=== PATIENT | female | born 1945 | race Caucasian/White ===

== ENCOUNTER → 2016-10-04 | Outpatient (CLI) | payer MEDICARE, MEDICAID ==
[~2016-10-04] MED LIST: ALLO100T PO; AMIT10 PO; AMIT50TA3 PO; ATEN-102 PO; COLC1TAB7 PO; LISI-586 PO; LORTA5 PO; NORC5TAB PO; TIZA4 PO; TIZA4CAP3 PO
[2016-10-04 11:06] LABS: BICARBONATE 30.7 MEQ/L (21.0-32.0); POTASSIUM 3.9 MEQ/L (3.5-5.1); URIC ACID 0.5 MG/DL (2.6-6.0)
== END ==
LOC: CLAB 10:22
PROVIDERS: ATTEND Internal Medicine Rheumatology
DX: M10.49 Other secondary gout, multiple sites (principal); Z79.899 Other long term (current) drug therapy
CPT/HCPCS: 36415; 80048; 84550

== ENCOUNTER → 2017-02-07 | Outpatient (CLI) | payer MEDICARE, MEDICAID ==
[~2017-02-07] MED LIST changes: +DIFL0.0512 RIGHT EYE; +NEPA0.3D RIGHT EYE; +VIGA0.5D RIGHT EYE
[2017-02-07 12:08] LABS: HEMATOCRIT 40.8 % (35.0-46.0); MEAN CELL VOLUME 95.4 FL (80.0-100.0); MEAN CORPUSCULAR HEMOGLOBIN 32.4 PG (27.0-34.0); PLATELET COUNT 295 TH/MM3 (150-450); RED BLOOD COUNT 4.28 MIL/MM3 (4.00-5.30); RED CELL DISTRIBUTION WIDTH 14.8 % (11.6-17.2); REVIEW FLAG FINAL
[2017-02-07 12:39] LABS: ALKALINE PHOSPHATASE 121 U/L (45-117); ALT (GPT) 32 U/L (10-53); TOTAL BILIRUBIN ADULT 0.8 MG/DL (0.2-1.0)
[2017-02-07 12:41] LABS: ANION GAP 8 MEQ/L (5-15); AST (GOT) 42 U/L (15-37); BICARBONATE 27.8 MEQ/L (21.0-32.0); BLOOD UREA NITROGEN 13 MG/DL (7-18); CHLORIDE 101 MEQ/L (98-107); GLOMERULAR FILTRATION RATE 57 ML/MIN (>89); GLUCOSE,FASTING 84 MG/DL (74-99); SODIUM (NA) 137 MEQ/L (136-145); URIC ACID 0.7 MG/DL (2.6-6.0)
[2017-02-07 12:49] LABS: POTASSIUM 4.3 MEQ/L (3.5-5.1)
== END ==
LOC: CLAB 11:34
PROVIDERS: ATTEND Internal Medicine Rheumatology
DX: M06.9 Rheumatoid arthritis, unspecified (principal); M10.49 Other secondary gout, multiple sites; I10 Essential (primary) hypertension; Z79.899 Other long term (current) drug therapy
CPT/HCPCS: 36415; 80053; 84443; 84550; 85027; G0463; 99213

== ENCOUNTER → 2017-03-22 | Outpatient (CLI) | payer MEDICARE, MEDICAID ==
[~2017-03-22] MED LIST changes: -AMIT10 PO; -ATEN-102 PO; -LISI-586 PO; -LORTA5 PO; -TIZA4 PO
[2017-03-22 11:48] LABS: AUTOMATED NEUTROPHIL # 5.7 TH/MM3 (1.8-7.7); BASOPHIL # 0.1 TH/MM3 (0-0.2); BASOPHIL % 0.8 % (0.0-2.0); EOSINOPHIL # 0.2 TH/MM3 (0-0.4); EOSINOPHIL % 2.4 % (0.0-4.0); HEMATOCRIT 37.8 % (35.0-46.0); HEMO FLAGS DIFF FINAL; LYMPHOCYTE # 3.3 TH/MM3 (1.0-4.8); MEAN CELL VOLUME 95.6 FL (80.0-100.0); MEAN CORPUSCULAR HGB CONC 33.5 % (32.0-36.0); MONO % 9.8 % (0.0-8.0); PLATELET COUNT 297 TH/MM3 (150-450); RED BLOOD COUNT 3.95 MIL/MM3 (4.00-5.30); RED CELL DISTRIBUTION WIDTH 14.4 % (11.6-17.2); WHITE BLOOD COUNT 10.3 TH/MM3 (4.0-11.0)
== END ==
LOC: PHPRE 10:56
PROVIDERS: ATTEND Ophthalmology
DX: Z01.812 Encounter for preprocedural laboratory examination (principal); H25.13 Age-related nuclear cataract, bilateral
CPT/HCPCS: 36415; 85025

== ENCOUNTER → 2017-03-23 | Outpatient (CLI) | payer MEDICARE, MEDICAID ==
--- NOTE | 2017-03-24 13:44 | HM ---
Date Performed: 03/24/2017 Time Performed: 08:46:00 HOOKUP DATE: 03/24/17 08:46:00 AM Fri ANALYSIS START TIME: 03/24/2017 8:51:00 AM ANALYSIS END TIME: 03/25/2017 8:51:18 AM PATIENT AGE: 71 PATIENT HEIGHT PATIENT WEIGHT DRUG LIST PATIENT DIAGNOSIS: syncope/hypertension TEST NARRATIVE: The patient's average heart rate was 86 BPM. Heart rates greater than 120 B PM were noted 1% of the time. No episodes of bradycardia were noted. No pauses exceeding 2.0 sec onds were noted. 39 ventricular ectopics, which represented < 1% of the total beat count, were no yulissa. The highest ventricular ectopic frequency occurred from 04:00 PM to 05:00 PM Fri. During this time 8 VE(s) occurred. Ventricular ectopics were observed as 29 isolated beat(s), as 1 couplet(s) an d as 1 run(s). 210 supraventricular ectopics, which represented < 1% of the total beat count, wer e noted. The highest supraventricular ectopic frequency occurred from 09:00 AM to 10:00 AM Fri. Dur ing this time 82 SVE(s) occurred. No episodes of ST depression (defined as -1.0 mm or more) were noted in channel 1. No episodes of ST depression (defined as -1.0 mm or more) were noted in channel 2. No episodes of ST depression (defined as -1.0 mm or more) were noted in channel 3. TEST INTERPRETATION: Holter monitor demonstrates Sinus rhythm with periods of sinus tachycardia up to 121 beats per minute. Rare PAC was noted. One 8 beat run of ventricular tachycardia was noted at 4:46 pm. There were no diary entries. Signed by : Nicola Glover
== END ==
LOC: HCAV 09:04
PROVIDERS: ATTEND Family Medicine
DX: R55 Syncope and collapse (principal); I10 Essential (primary) hypertension
CPT/HCPCS: 93225; 93226

== ENCOUNTER → 2017-04-05 | Day surgery (SDC) | payer MEDICARE, MEDICAID ==
[~2017-04-05] VITALS: Ht 167.6 cm; Wt 56.0 kg
[~2017-04-05] MED LIST changes: +ACETYLCHOLINE CHL OPHT SOLN 1:100 2 ML VIAL ONE; +CHLORHEXIDINE GLUCONATE 2 % 1 PACK (2 CLOTHS) TOPICAL PRN; +EPINEPHrine-Lidocaine/BSS (PF/SF) 4-120 mg/16 mL OPTH SYR ONE; +EPINEPHrine-Lidocaine/BSS (PF/SF) 4-120 mg/16 mL OPTH SYR RIGHT EYE ONE; +HYALURONIDASE/LIDOCAINE/EPINEPHRINE/BUPIVACAINE 4.5 ML SYR ONE; +HYALURONIDASE/LIDOCAINE/EPINEPHRINE/BUPIVACAINE 4.5 ML SYR RIGHT EYE ONE; +HYALURONIDASE/LIDOCAINE/EPINEPHRINE/BUPIVACAINE 6 ML SYR ONE; +HYALURONIDASE/LIDOCAINE/EPINEPHRINE/BUPIVACAINE 6 ML SYR RIGHT EYE ONE; +INSULIN HUMAN REGULAR 1,000 UNITS/10 ML VIAL SQ PRN; +LACTATED RINGER'S 1000 ML IV PRN; +METOPROLOL TARTRATE 25 MG TAB PO PRN; +POVIDONE IODINE 5% (ANTISEPSIS KIT) 4 APPLICATIONS EACH NARE PRN; +PROPOFOL 200 MG/20 ML AMP ONE; +SODIUM CHLORID 0.9% 500 ML IV PRN; +TOBRAMYCIN/DEXAMETHASONE OPTH OINT 3.5 GM TUBE ONE; +TRYPAN BLUE 0.5 ML OPHT DYE SYRINGE RIGHT EYE ONE; +VISCOAT OPHT IRRIG SOLN 0.75 ML SYRINGE ONE; +VISCOAT OPHT IRRIG SOLN 0.75 ML SYRINGE RIGHT EYE ONE
[2017-04-05 08:35] VITALS: BP 188/94; PULSE 107; RESP 16; TEMP 97.5; O2SAT 100
[2017-04-05 08:40] VITALS: PULSE 107
[2017-04-05] MEDS: TROPICAMIDE 1% OPHT SOLN 15 ML BTL RIGHT EYE SCH ×3 (08:40→08:50)
[2017-04-05] MEDS: CYCLOPENTOLATE HCL 1% OPHT SOLN 2 ML BTL RIGHT EYE SCH ×3 (08:40→08:50)
[2017-04-05] MEDS: PHENYLEPHRINE HCL 10% OPTH SOLN 5 ML BTL RIGHT EYE SCH ×3 (08:40→08:50)
[2017-04-05] MEDS: TETRACAINE 0.5% OPTH SOLN 4 ML BTL RIGHT EYE SCH ×3 (08:40→08:50)
[2017-04-05 09:08] VITALS: PULSE 110
[2017-04-05 11:04] VITALS: TEMP 98.5
--- NOTE | 2017-04-05 11:18 | PD.OP ---
Operative Report Date of Surgery: Apr 05, 2017 Preoperative Diagnosis: (1) Nuclear sclerotic cataract of right eye Postoperative Diagnosis: (1) Pseudophakia of right eye Procedure: phacoemulsification and sulcus intraocular lens implant right eye Anesthesia: retrobulbar block, MAC Surgeon: Loli Solis Family Services Assistant(s): none Operation and Findings: Patient was consented for surgery, given a retrobulbar block by anesthesia, and taken back to the operating room. She was prepped and draped in the usual sterile fashion for ophthalmic surgery. A wire lid speculum was placed in the right eye. A paracentesis incision was created at the 11 o'clock position on the limbus. Vision blue dye, epishugarcaine, and viscoelastic was injected into the anterior chamber. The main incision was created at the 8 o'clock position on the limbus with a 2.4 mm keratome. A continuous curvilinear capsulorrhexis was made on the anterior lens capsule. Hydrodissection was used to separate the lens from the capsule. Phacoemulsification was used to remove the lens nucleus material. Irrigation and aspiration was used to remove the remaining cortical material. A posterior rent on the capsule was noted so it was decided to insert a sulcus lens. The lens implant ([id number] 22.5D [id number]) was placed in the sulcus. A scratch was noted on the lens but it was decided to not remove or replace it. Viscoelastic was removed with irrigation and aspiration. Miochol was injected into the anterior chamber. No vitreous was noted to be in the incisions. The incisions were irrigated and found to be watertight. A 10-0 nylon suture was placed on the main incision. Tobradex ointment, a patch, and shield were placed on the right eye. The patient was sent to PACU in stable condition. 1000 mg of Diamox were given postop. Loli Solis MD Apr 05, 2017 11:18
[2017-04-05 11:30] VITALS: BP 167/92; PULSE 95; RESP 14; O2SAT 100
== END | disposition home or self-care (01) ==
LOC: PHSDC 08:13
PROVIDERS: ATTEND Ophthalmology
DX: H25.11 Age-related nuclear cataract, right eye (principal); F32.9 Major depressive disorder, single episode, unspecified
CPT/HCPCS: 00142; 66984; J7040; V2632

== ENCOUNTER → 2017-04-13 | Outpatient (CLI) | payer MEDICARE, MEDICAID ==
[~2017-04-13] MED LIST changes: -ACETYLCHOLINE CHL OPHT SOLN 1:100 2 ML VIAL ONE; -CHLORHEXIDINE GLUCONATE 2 % 1 PACK (2 CLOTHS) TOPICAL PRN; -EPINEPHrine-Lidocaine/BSS (PF/SF) 4-120 mg/16 mL OPTH SYR ONE; -EPINEPHrine-Lidocaine/BSS (PF/SF) 4-120 mg/16 mL OPTH SYR RIGHT EYE ONE; -HYALURONIDASE/LIDOCAINE/EPINEPHRINE/BUPIVACAINE 4.5 ML SYR ONE; -HYALURONIDASE/LIDOCAINE/EPINEPHRINE/BUPIVACAINE 4.5 ML SYR RIGHT EYE ONE; -HYALURONIDASE/LIDOCAINE/EPINEPHRINE/BUPIVACAINE 6 ML SYR ONE; -HYALURONIDASE/LIDOCAINE/EPINEPHRINE/BUPIVACAINE 6 ML SYR RIGHT EYE ONE; -INSULIN HUMAN REGULAR 1,000 UNITS/10 ML VIAL SQ PRN; -LACTATED RINGER'S 1000 ML IV PRN; -METOPROLOL TARTRATE 25 MG TAB PO PRN; -POVIDONE IODINE 5% (ANTISEPSIS KIT) 4 APPLICATIONS EACH NARE PRN; -PROPOFOL 200 MG/20 ML AMP ONE; -SODIUM CHLORID 0.9% 500 ML IV PRN; -TOBRAMYCIN/DEXAMETHASONE OPTH OINT 3.5 GM TUBE ONE; -TRYPAN BLUE 0.5 ML OPHT DYE SYRINGE RIGHT EYE ONE; -VISCOAT OPHT IRRIG SOLN 0.75 ML SYRINGE ONE; -VISCOAT OPHT IRRIG SOLN 0.75 ML SYRINGE RIGHT EYE ONE
[2017-04-13 12:09] LABS: HEMATOCRIT 42.5 % (35.0-46.0); MEAN CELL VOLUME 97.4 FL (80.0-100.0); MEAN CORPUSCULAR HEMOGLOBIN 32.6 PG (27.0-34.0); MEAN CORPUSCULAR HGB CONC 33.5 % (32.0-36.0); PLATELET COUNT 360 TH/MM3 (150-450); RED BLOOD COUNT 4.36 MIL/MM3 (4.00-5.30); RED CELL DISTRIBUTION WIDTH 14.9 % (11.6-17.2); REVIEW FLAG FINAL
== END ==
LOC: CLAB 11:44
PROVIDERS: ATTEND Ophthalmology
DX: I10 Essential (primary) hypertension (principal)
CPT/HCPCS: 36415; 85027

== ENCOUNTER → 2017-05-03 | Day surgery (SDC) | payer MEDICARE, MEDICAID ==
[~2017-05-03] VITALS: Ht 167.6 cm; Wt 56.0 kg
[~2017-05-03] MED LIST changes: +CHLORHEXIDINE GLUCONATE 2 % 1 PACK (2 CLOTHS) TOPICAL PRN; +CYCLOPENTOLATE HCL 1% OPHT SOLN 2 ML BTL ONE; +DIFL0.0512 LEFT EYE; +EPINEPHrine-Lidocaine/BSS (PF/SF) 4-120 mg/16 mL OPTH SYR LEFT EYE ONE; +EPINEPHrine-Lidocaine/BSS (PF/SF) 4-120 mg/16 mL OPTH SYR ONE; +HYALURONIDASE/LIDOCAINE/EPINEPHRINE/BUPIVACAINE 4.5 ML SYR LEFT EYE ONE; +HYALURONIDASE/LIDOCAINE/EPINEPHRINE/BUPIVACAINE 6 ML SYR LEFT EYE ONE; +HYALURONIDASE/LIDOCAINE/EPINEPHRINE/BUPIVACAINE 6 ML SYR ONE; +INSULIN HUMAN REGULAR 1,000 UNITS/10 ML VIAL SQ PRN; +LACTATED RINGER'S 1000 ML IV PRN; +METOPROLOL TARTRATE 25 MG TAB PO PRN; +NEPA0.3D LEFT EYE; +PHENYLEPHRINE HCL 10% OPTH SOLN 5 ML BTL ONE; +POVIDONE IODINE 5% (ANTISEPSIS KIT) 4 APPLICATIONS EACH NARE PRN; +PROPOFOL 200 MG/20 ML AMP ONE; +SODIUM CHLORID 0.9% 500 ML INJ 500 ML ONE; +SODIUM CHLORID 0.9% 500 ML IV PRN; +TETRACAINE 0.5% OPTH SOLN 4 ML BTL ONE; +TOBRAMYCIN/DEXAMETHASONE OPTH OINT 3.5 GM TUBE ONE; +TROPICAMIDE 1% OPHT SOLN 15 ML BTL ONE; +TRYPAN BLUE 0.5 ML OPHT DYE SYRINGE LEFT EYE ONE; +VIGA0.5D LEFT EYE; +VISCOAT LEFT EYE ONE; +VISCOAT OPHT IRRIG SOLN 0.75 ML SYRINGE ONE
[2017-05-03 06:45] VITALS: BP 159/80; PULSE 96; RESP 18; TEMP 97.7; O2SAT 98
[2017-05-03 06:50] VITALS: PULSE 96
[2017-05-03] MEDS: TETRACAINE 0.5% OPTH SOLN 4 ML BTL LEFT EYE SCH ×3 (07:00→07:10)
[2017-05-03] MEDS: CYCLOPENTOLATE HCL 1% OPHT SOLN 2 ML BTL LEFT EYE SCH ×3 (07:00→07:10)
[2017-05-03] MEDS: TROPICAMIDE 1% OPHT SOLN 15 ML BTL LEFT EYE SCH ×3 (07:00→07:10)
[2017-05-03] MEDS: PHENYLEPHRINE HCL 10% OPTH SOLN 5 ML BTL LEFT EYE SCH ×3 (07:00→07:10)
[2017-05-03 08:30] VITALS: PULSE 96
--- NOTE | 2017-05-03 09:36 | PD.OP ---
Operative Report Date of Surgery: May 03, 2017 Preoperative Diagnosis: (1) Nuclear sclerotic cataract of left eye Postoperative Diagnosis: (1) Pseudophakia of left eye Procedure: phacoemulsification and intraocular lens implant left eye Anesthesia: MAC, retrobulbar block Surgeon: Loli Solis Switchboard Troubleshooter(s): none Operation and Findings: Patient was consented for surgery, given a retrobulbar block by anesthesia, and taken back to the operating room. She was prepped and draped in the usual sterile fashion for ophthalmic surgery. A wire lid speculum was placed in the left eye. A paracentesis incision was created at the 5 o'clock position on the limbus. Vision blue dye, intracameral epishugarcaine, and viscoelastic was injected into the anterior chamber. The main incision was created at the 2 o' clock position on the limbus with a 2.4 mm keratome. A continuous curvilinear capsulorrhexis was made on the anterior lens capsule. Hydrodissection was used to separate the lens from the capsule. Phacoemulsification was used to remove the lens nucleus material. Irrigation and aspiration was used to remove the remaining cortical material. The lens implant ([id number] 23.5D SN [id number]) was placed in the capsular bag. Viscoelastic was removed with irrigation and aspiration. The incisions were irrigated and found to be watertight. 10-0 nylon suture was placed on the main incision. Tobradex ointment, a patch, and shield were placed on the left eye. The patient was sent to PACU in stable condition. Loli Solis MD May 03, 2017 09:36
[2017-05-03 09:50] VITALS: BP 173/80; PULSE 84; RESP 16; TEMP 98; O2SAT 96
== END | disposition home or self-care (01) ==
LOC: PHSDC 06:35
PROVIDERS: ATTEND Ophthalmology
DX: H25.12 Age-related nuclear cataract, left eye (principal); Z96.1 Presence of intraocular lens
CPT/HCPCS: 00142; 66984; J7040; V2632; J3010

== ENCOUNTER → 2017-05-09 | Outpatient (CLI) | payer MEDICARE, MEDICAID ==
[~2017-05-09] MED LIST changes: -CHLORHEXIDINE GLUCONATE 2 % 1 PACK (2 CLOTHS) TOPICAL PRN; -CYCLOPENTOLATE HCL 1% OPHT SOLN 2 ML BTL ONE; -DIFL0.0512 RIGHT EYE; -EPINEPHrine-Lidocaine/BSS (PF/SF) 4-120 mg/16 mL OPTH SYR LEFT EYE ONE; -EPINEPHrine-Lidocaine/BSS (PF/SF) 4-120 mg/16 mL OPTH SYR ONE; -HYALURONIDASE/LIDOCAINE/EPINEPHRINE/BUPIVACAINE 4.5 ML SYR LEFT EYE ONE; -HYALURONIDASE/LIDOCAINE/EPINEPHRINE/BUPIVACAINE 6 ML SYR LEFT EYE ONE; -HYALURONIDASE/LIDOCAINE/EPINEPHRINE/BUPIVACAINE 6 ML SYR ONE; -INSULIN HUMAN REGULAR 1,000 UNITS/10 ML VIAL SQ PRN; -LACTATED RINGER'S 1000 ML IV PRN; -METOPROLOL TARTRATE 25 MG TAB PO PRN; -NEPA0.3D RIGHT EYE; -PHENYLEPHRINE HCL 10% OPTH SOLN 5 ML BTL ONE; -POVIDONE IODINE 5% (ANTISEPSIS KIT) 4 APPLICATIONS EACH NARE PRN; -PROPOFOL 200 MG/20 ML AMP ONE; -SODIUM CHLORID 0.9% 500 ML INJ 500 ML ONE; -SODIUM CHLORID 0.9% 500 ML IV PRN; -TETRACAINE 0.5% OPTH SOLN 4 ML BTL ONE; -TOBRAMYCIN/DEXAMETHASONE OPTH OINT 3.5 GM TUBE ONE; -TROPICAMIDE 1% OPHT SOLN 15 ML BTL ONE; -TRYPAN BLUE 0.5 ML OPHT DYE SYRINGE LEFT EYE ONE; -VIGA0.5D RIGHT EYE; -VISCOAT LEFT EYE ONE; -VISCOAT OPHT IRRIG SOLN 0.75 ML SYRINGE ONE
[2017-05-09 10:20] LABS: BICARBONATE 27.4 MEQ/L (21.0-32.0); POTASSIUM 3.7 MEQ/L (3.5-5.1); URIC ACID 0.9 MG/DL (2.6-6.0)
== END ==
LOC: CLAB 09:35
PROVIDERS: ATTEND Internal Medicine Rheumatology
DX: M10.49 Other secondary gout, multiple sites (principal); Z79.899 Other long term (current) drug therapy
CPT/HCPCS: 36415; 80048; 84550

== ENCOUNTER → 2017-08-31 | Outpatient (CLI) | payer MEDICARE, MEDICAID ==
[~2017-08-31] MED LIST changes: +COLC0.6T PO; -COLC1TAB7 PO; +THERSOL2 EACH EYE
[2017-08-31 10:36] LABS: BICARBONATE 33.1 MEQ/L (21.0-32.0); POTASSIUM 3.7 MEQ/L (3.5-5.1); URIC ACID 1.5 MG/DL (2.6-6.0)
== END ==
LOC: CLAB 09:48
PROVIDERS: ATTEND Internal Medicine Rheumatology
DX: M10.079 Idiopathic gout, unspecified ankle and foot (principal); Z79.899 Other long term (current) drug therapy
CPT/HCPCS: 36415; 80048; 84550

== ENCOUNTER → 2017-11-15 | Outpatient (CLI) | payer MEDICARE, MEDICAID ==
[~2017-11-15] MED LIST changes: +BALANCED SALT SOLN OPHT IRRIG 15 ML BTL ONE; +PHENYLEPHRINE HCL 2.5% OPTH SOLN 2 ML BTL ONE; +PROPARACAINE HCL 0.5% OPHT SOLN 15 ML BTL ONE; +TROPICAMIDE 1% OPHT SOLN 15 ML BTL ONE
== END ==
LOC: PHSDC 10:28
PROVIDERS: ATTEND Ophthalmology
DX: H26.491 Other secondary cataract, right eye (principal)